=== PATIENT | female | born 1990 | race Caucasian/White ===

== ENCOUNTER 2019-11-14 09:23 | Inpatient (IN) | payer MEDICAID ==
[2019-11-14] MEDS ORDERED: Nalbuphine 10 MG/ML Syringe IVPUSH PRN (10:59)
[2019-11-14] MEDS ORDERED: Sodium Chloride 0.9% 10 ML Syringe FLUSH PRN (10:59)
[2019-11-14] MEDS ORDERED: Oxytocin/Lactated Ringers 10 UNIT/1,000 ML BAG IV SCH ×2 (11:00)
[2019-11-14] MEDS: Lactated Ringers 1,000 ML IV SCH ×4 (11:45→17:47)
[2019-11-14] MEDS ORDERED: ePHEDrine 50 MG/ML SDV IVPUSH PRN (11:47)
[2019-11-14] MEDS ORDERED: Ondansetron 4 MG/2 ML SDV IVPUSH PRN (11:47)
[2019-11-14] MEDS ORDERED: fentaNYL 100 MCG/2 ML SDV EPIDUR PRN (11:47)
--- NOTE | 2019-11-14 11:50 | PCM.PREANE ---
Preanesthetic Assessment - Procedure Proposed Procedure: LINDA - Anesthesia/Transfusion/Family Hx Anesthesia History: Prior Anesthesia Without Reaction Family History of Anesthesia Reaction: No Transfusion History: No Prior Transfusion(s) Intubation History: Unknown - Review of Systems General: No Symptoms Pulmonary: No Symptoms Cardiovascular: No Symptoms Gastrointestinal: No Symptoms (GERD with ), Constipation Neurological: Headache, Tingling (bilateral feet with ) Other: Reports: None - Physical Assessment NPO Status Date: 11/14/19 NPO Status Time: 11:30 Vital Signs: Last Vital Signs Temp 36.4 C 11/14/19 10:03 Pulse 99 11/14/19 10:03 Resp 16 11/14/19 10:03 BP 116/71 11/14/19 10:03 Pulse Ox 100 11/14/19 10:03 Height: 1.45 m Weight: 82.781 kg ASA Class: 2 Mental Status: Alert & Oriented x3 Airway Class: Mallampati = 2 Dentition: Reports: Normal Dentition, Caries Thyro-Mental Finger Breadths: 3 Mouth Opening Finger Breadths: 3 ROM/Head Extension: Full Lungs: Clear to Auscultation, Normal Respiratory Effort Cardiovascular: Regular Rate, Regular Rhythm, No Murmurs - Lab Values: Laboratory Last Values WBC 6.92 K/mm3 (3.98-10.04) 11/14/19 11:15 RBC 3.91 M/mm3 (3.98-5.22) L 11/14/19 11:15 Hgb 11.6 gm/dl (11.2-15.7) 11/14/19 11:15 Hct 34.9 % (34.1-44.9) 11/14/19 11:15 MCV 89.3 fl (79.4-94.8) 11/14/19 11:15 MCH 29.7 pg (25.6-32.2) 11/14/19 11:15 MCHC 33.2 g/dl (32.2-35.5) 11/14/19 11:15 RDW Std Deviation 48.1 fL (36.4-46.3) H 11/14/19 11:15 Plt Count 212 K/mm3 (182-369) 11/14/19 11:15 MPV 10.3 fl (9.4-12.3) 11/14/19 11:15 Neut % (Auto) 59.5 % (34.0-71.1) 11/14/19 11:15 Lymph % (Auto) 26.7 % (19.3-51.7) 11/14/19 11:15 [place] % (Auto) 11.1 % (4.7-12.5) 11/14/19 11:15 Eos % (Auto) 1.7 (0.7-5.8) 11/14/19 11:15 Baso % (Auto) 0.4 % (0.1-1.2) 11/14/19 11:15 Neut # (Auto) 4.11 K/mm3 (1.56-6.13) 11/14/19 11:15 Lymph # (Auto) 1.85 K/mm3 (1.18-3.74) 11/14/19 11:15 [place] # (Auto) 0.77 K/mm3 (0.24-0.36) H 11/14/19 11:15 Eos # (Auto) 0.12 K/mm3 (0.04-0.36) 11/14/19 11:15 Baso # (Auto) 0.03 K/mm3 (0.01-0.08) 11/14/19 11:15 Membrane Rupture Positive H 11/14/19 10:05 Above labs reviewed and noted and within acceptable ranges to proceed with epidural if desired. - Allergies Allergies/Adverse Reactions: Allergies Allergy/AdvReac Type Severity Reaction Status Date / Time Sulfa (Sulfonamide Allergy Hives Verified 11/14/19 09:52 Antibiotics) - Anesthesia Plan Pre-Op Medication Ordered: None - Acknowledgements Anesthesia Type Planned: Spinal, Epidural Pt an Appropriate Candidate for the Planned Anesthesia: Yes Alternatives and Risks of Anesthesia Discussed w Pt/Guardian: Yes Pt/Guardian Understands and Agrees with Anesthesia Plan: Yes PreAnesthesia Questionnaire - CURRENT (IN HOUSE) MEDS Current Meds: Current Medications Lactated Ringer's (Ringers, Lactated) 1,000 mls @ 100 mls/hr IV ASDIRECTED [facility] Last Admin: 11/14/19 11:46 Dose: 100 mls/hr Oxytocin/Lactated Ringer's (Pitocin In Lr 10 Units/1,000 Ml) 10 unit in 1,000 mls @ 12 mls/hr IV TITRATE [facility]; Protocol Last Admin: 11/14/19 11:46 Dose: 2 munits/min, 12 mls/hr Oxytocin/Lactated Ringer's (Pitocin In Lr 10 Units/1,000 Ml) 10 unit in 1,000 mls @ 500 mls/hr IV .CONTINUOUS IN[facility] Nalbuphine HCl (Nubain) 10 mg IVPUSH Q2H PRN PRN Reason: Pain Sodium Chloride (Saline Flush) 10 ml FLUSH ASDIRECTED PRN PRN Reason: Keep Vein Open
[2019-11-14] MEDS ORDERED: Phenylephrine 1 MG in Sodium Chloride 0.9% 10 ML IV PRN (12:00)
[2019-11-14] MEDS: Bupivacaine/fentaNYL/NS 100 ML Bag EPIDUR SCH (15:08)
--- NOTE | 2019-11-14 17:01 | PCM.LDHP ---
L&D History of Present Illness - General Date of Service: 11/14/19 Admit Problem/Dx: Patient Status Order with Admit Dx/Problem 11/14/19 10:03 Patient Status [ADT] Routine 11/14/19 11:04 Patient Status [ADT] Routine Admission Diagnosis/Problem Admission Diagnosis/Problem Source of Information: Patient History Limitations: Reports: No Limitations - History of Present Illness Introduction:: 29 year old at 39w1d here with SROM clear fluid. PNC with myself without significant complications. Prior and desires TOLAC. 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 (See Below) Other OB/BYN History: oopherectomy age 13 - Infectious Disease History Infectious Disease History: Reports: None Social & Family History - Family History Family Medical History: Noncontributory - Tobacco Use Smoking Status *Q: Never Smoker Second Hand Smoke Exposure: No - Caffeine Use Caffeine Use: Reports: None, Coffee Caffeine Use Comment: twice weekly - Recreational Drug Use Recreational Drug Use: No H&P Review of Systems - Review of Systems: Review Of Systems: See Below General: Reports: No Symptoms HEENT: Reports: No Symptoms Pulmonary: Reports: No Symptoms Cardiovascular: Reports: No Symptoms Gastrointestinal: Reports: No Symptoms Genitourinary: Reports: No Symptoms Musculoskeletal: Reports: No Symptoms Skin: Reports: No Symptoms Psychiatric: Reports: No Symptoms Neurological: Reports: No Symptoms Hematologic/Lymphatic: Reports: No Symptoms Immunologic: Reports: No Symptoms L&D Exam - Exam Exam: See Below - Vital Signs Vital Signs: Last Vital Signs Temp 36.4 C 11/14/19 10:03 Pulse 99 11/14/19 10:03 Resp 16 11/14/19 10:03 BP 116/71 11/14/19 10:03 Pulse Ox 100 11/14/19 10:03 Weight: 82.781 kg - OB Specific Contraction Intensity: Moderate to Strong Movement: Active Heart Tones: Present Heart Rate (FHR) Variability: Moderate (6-25 bmp) Presentation: Vertex - Leroy Score Leroy Score Cervix Position: Anterior Leroy Score Consistency: Soft Leroy Score Effacement: >80% Leroy Score Dilation: 3-4 cm Leroy Score 's Station: -2 Leroy Score Total: 10 - Exam General: Alert, Oriented HEENT: PERRLA, Conjunctiva Clear, EACs Clear, EOMI, Hearing Intact, Mucosa Moist & [place], Nares Patent, Normal Nasal Septum, Posterior Pharynx Clear, TMs Clear Neck: Supple, Trachea Midline Lungs: Clear to Auscultation, Normal Respiratory Effort Cardiovascular: Regular Rate, Regular Rhythm GI/Abdominal Exam: Normal Bowel Sounds, Soft, Non-Tender, No Organomegaly, No Distention, No Abnormal Bruit, No Mass, Pelvis Stable Extremities: Normal Inspection, Normal Range of Motion, Non-Tender, No Pedal Edema, Normal Capillary Refill Skin: Warm, Dry, Intact Neurological: Cranial Nerves Intact, Reflexes Equal Bilateral Psychiatric: Alert, Normal Affect, Normal Mood - Patient Data Lab Results Last 24 hrs: Laboratory Results - last 24 hr 11/14/19 11/14/19 11/14/19 Range/Units 10:05 11:15 11:15 WBC 6.92 (3.98-10.04) K/mm3 RBC 3.91 L (3.98-5.22) M/mm3 Hgb 11.6 (11.2-15.7) gm/dl Hct 34.9 (34.1-44.9) % MCV 89.3 (79.4-94.8) fl MCH 29.7 (25.6-32.2) pg MCHC 33.2 (32.2-35.5) g/dl RDW Std Deviation 48.1 H (36.4-46.3) fL Plt Count 212 (182-369) K/mm3 MPV 10.3 (9.4-12.3) fl Neut % (Auto) 59.5 (34.0-71.1) % Lymph % (Auto) 26.7 (19.3-51.7) % [place] % (Auto) 11.1 (4.7-12.5) % Eos % (Auto) 1.7 (0.7-5.8) Baso % (Auto) 0.4 (0.1-1.2) % Neut # (Auto) 4.11 (1.56-6.13) K/mm3 Lymph # (Auto) 1.85 (1.18-3.74) K/mm3 [place] # (Auto) 0.77 H (0.24-0.36) K/mm3 Eos # (Auto) 0.12 (0.04-0.36) K/mm3 Baso # (Auto) 0.03 (0.01-0.08) K/mm3 Membrane Rupture Positive H Blood Type O POSITIVE Gel Antibody Screen Negative Result Diagrams: 11/14/19 11:15 Problem List Initiated/Reviewed/Updated: Yes Orders Last 24hrs: Active Orders 24 hr Category Date Time Status Patient Status [ADT] Routine ADT 11/14/19 11:04 Active Activity as Tolerated [RC] PFP Care 11/14/19 11:00 Active Communication Order [RC] ASDIRECTED Care 11/14/19 11:00 Active Heart Tones [RC] ASDIRECTED Care 11/14/19 11:01 Active Notify Provider [RC] ASDIRECTED Care 11/14/19 11:47 Active Notify Provider [RC] PFP Care 11/14/19 11:00 Active Notify Provider [RC] PRN Care 11/14/19 11:00 Active Oxygen Therapy [RC] ASDIRECTED Care 11/14/19 11:47 Active Peripheral IV Care [RC] . DIRECTED Care 11/14/19 11:01 Active Pulse Oximetry [RC] ASDIRECTED Care 11/14/19 11:47 Active Vital Signs [RC] PER UNIT ROUTINE Care 11/14/19 10:03 Active Vital Signs [RC] PER UNIT ROUTINE Care 11/14/19 11:00 Active Regular Diet [DIET] Diet 11/14/19 Lunch Active Regular Diet [DIET] Diet 11/14/19 Lunch Active RAPID PLASMA REAGIN,RPR [CHEM] Routine Lab 11/14/19 11:15 Received Bupivacaine/fentaNYL/NS [fentaNYL/Bupivacaine/NS 2 MCG- Med 11/14/19 12:00 Active 0.125% 100 ML] 100 ml EPIDUR ASDIRECTED Lactated Ringers [Ringers, Lactated] 1,000 ml Med 11/14/19 11:00 Active IV ASDIRECTED Nalbuphine [Nubain] Med 11/14/19 10:59 Active 10 mg IVPUSH Q2H PRN Ondansetron [Zofran] Med 11/14/19 11:47 Active 4 mg IVPUSH ONETIME PRN Oxytocin/Lactated Ringers [Pitocin in LR 10 Units/1,000 Med 11/14/19 11:00 Active ML] 10 unit in 1,000 ml IV .CONTINUOUS Oxytocin/Lactated Ringers [Pitocin in LR 10 Units/1,000 Med 11/14/19 11:00 Active ML] 10 unit in 1,000 ml IV TITRATE Phenylephrine [Simeon-Synephrine] 1 mg Med 11/14/19 12:00 Active Sodium Chloride 0.9% [Normal Saline] 10 ml IV TITRATE Sodium Chloride 0.9% [Saline Flush] Med 11/14/19 10:59 Active 10 ml FLUSH ASDIRECTED PRN ePHEDrine [ePHEDrine sulfate] Med 11/14/19 11:47 Active 5 mg IVPUSH ASDIRECTED PRN fentaNYL [Sublimaze] Med 11/14/19 11:47 Active 100 mcg EPIDUR Q3H PRN Electronic Heart Tones Ext w TOCO [WOMSER] Oth 11/14/19 11:00 Ordered Routine Electronic Heart Tones Internal [WOMSER] Per Unit Ot 11/14/19 11:00 Ordered Routine Peripheral IV Insertion Adult [OM.PC] Routine Oth 11/14/19 11:00 Ordered Resuscitation Status Routine Resus Stat 11/14/19 10:03 Ordered Medication Orders Ephedrine Sulfate (Ephedrine Sulfate) 5 mg IVPUSH ASDIRECTED PRN PRN Reason: Hypotension Fentanyl (Sublimaze) 100 mcg EPIDUR Q3H PRN PRN Reason: Pain Last Admin: 11/14/19 15:07 Dose: 100 mcg Fentanyl/Bupivacaine HCl (Fentanyl/Bupivacaine/Ns 2 Mcg-0.125% 100 Ml) 100 ml EPIDUR ASDIRECTED [facility] Last Admin: 11/14/19 15:08 Dose: 100 ml Lactated Ringer's (Ringers, Lactated) 1,000 mls @ 100 mls/hr IV ASDIRECTED [facility] Last Admin: 11/14/19 15:35 Dose: 200 mls/hr Infusion: 11/14/19 15:35 Dose: 0 mls/hr Admin: 11/14/19 11:46 Dose: 100 mls/hr Infusion: 11/14/19 11:46 Dose: 100 mls/hr Admin: 05/13/20 11:45 Dose: 100 mls/hr Oxytocin/Lactated Ringer's (Pitocin In Lr 10 Units/1,000 Ml) 10 unit in 1,000 mls @ 12 mls/hr IV TITRATE INNA; Protocol Last Titration: 11/14/19 16:46 Dose: 6 munits/min, 36 mls/hr Titration: 11/14/19 12:09 Dose: 4 munits/min, 24 mls/hr Admin: 11/14/19 11:46 Dose: 2 munits/min, 12 mls/hr Oxytocin/Lactated Ringer's (Pitocin In Lr 10 Units/1,000 Ml) 10 unit in 1,000 mls @ 500 mls/hr IV .CONTINUOUS INNA Phenylephrine HCl 1 mg/ Sodium (Chloride) 10.1 mls @ 1 mls/sec IV TITRATE PRN; Protocol PRN Reason: see comment Nalbuphine HCl (Nubain) 10 mg IVPUSH Q2H PRN PRN Reason: Pain Ondansetron HCl (Zofran) 4 mg IVPUSH ONETIME PRN PRN Reason: Nausea/Vomiting Sodium Chloride (Saline Flush) 10 ml FLUSH ASDIRECTED PRN PRN Reason: Keep Vein Open Assessment/Plan Comment:: 29 year old with prior section and desire for EVELYN. SROM clear fluid. 1 cm. Will monitor closely. RBA discussed again. Understands risks. Records reviewed from before. Didn't progress beyond about 4 cm.
--- NOTE | 2019-11-14 17:11 | PCM.PNLD ---
Labor Progress Note - VS & Meds Vital Signs: Last Vital Signs Temp 36.4 C 11/14/19 10:03 Pulse 99 11/14/19 10:03 Resp 16 11/14/19 10:03 BP 116/71 11/14/19 10:03 Pulse Ox 100 11/14/19 10:03 Active Medications: Current Medications Ephedrine Sulfate (Ephedrine Sulfate) 5 mg IVPUSH ASDIRECTED PRN PRN Reason: Hypotension Fentanyl (Sublimaze) 100 mcg EPIDUR Q3H PRN PRN Reason: Pain Last Admin: 11/14/19 15:07 Dose: 100 mcg Fentanyl/Bupivacaine HCl (Fentanyl/Bupivacaine/Ns 2 Mcg-0.125% 100 Ml) 100 ml EPIDUR ASDIRECTED [facility] Last Admin: 11/14/19 15:08 Dose: 100 ml Lactated Ringer's (Ringers, Lactated) 1,000 mls @ 100 mls/hr IV ASDIRECTED INNA Last Admin: 11/14/19 15:35 Dose: 200 mls/hr Oxytocin/Lactated Ringer's (Pitocin In Lr 10 Units/1,000 Ml) 10 unit in 1,000 mls @ 12 mls/hr IV TITRATE INNA; Protocol Last Titration: 11/14/19 16:46 Dose: 6 munits/min, 36 mls/hr Oxytocin/Lactated Ringer's (Pitocin In Lr 10 Units/1,000 Ml) 10 unit in 1,000 mls @ 500 mls/hr IV .CONTINUOUS INNA Phenylephrine HCl 1 mg/ Sodium (Chloride) 10.1 mls @ 1 mls/sec IV TITRATE PRN; Protocol PRN Reason: see comment Nalbuphine HCl (Nubain) 10 mg IVPUSH Q2H PRN PRN Reason: Pain Ondansetron HCl (Zofran) 4 mg IVPUSH ONETIME PRN PRN Reason: Nausea/Vomiting Sodium Chloride (Saline Flush) 10 ml FLUSH ASDIRECTED PRN PRN Reason: Keep Vein Open - Uterine Contractions Uterine Monitoring Mode: External [place] Contraction Intensity: Moderate to Strong Uterine Resting Tone: Soft - Monitoring Heart Rate (FHR) Variability: Moderate (6-25 bmp) Accelerations: Present, 15x15 Decelerations: None Strip Review: Category I - Vaginal Exam Dilation (cm): 4 Effacement (Percent): 80 Station: -3 - Labor Progress (Free Text) Labor Progress: Slow progress. Comfortable with epidural. Pitocin at 6 mu/min. Discussed typical labor progress once active. Was 1 cm this am now 4. Continue to monitor closely. Will sign out to Dr. Collazo this evening.
--- NOTE | 2019-11-14 18:50 | PCM.PNLD ---
Labor Progress Note - VS & Meds Vital Signs: Last Vital Signs Temp 36.4 C 11/14/19 10:03 Pulse 99 11/14/19 10:03 Resp 16 11/14/19 10:03 BP 116/71 11/14/19 10:03 Pulse Ox 100 11/14/19 10:03 Active Medications: Current Medications Ephedrine Sulfate (Ephedrine Sulfate) 5 mg IVPUSH ASDIRECTED PRN PRN Reason: Hypotension Fentanyl (Sublimaze) 100 mcg EPIDUR Q3H PRN PRN Reason: Pain Last Admin: 11/14/19 15:07 Dose: 100 mcg Fentanyl/Bupivacaine HCl (Fentanyl/Bupivacaine/Ns 2 Mcg-0.125% 100 Ml) 100 ml EPIDUR ASDIRECTED [facility] Last Admin: 11/14/19 15:08 Dose: 100 ml Lactated Ringer's (Ringers, Lactated) 1,000 mls @ 100 mls/hr IV ASDIRECTED IN[facility] Last Admin: 11/14/19 17:47 Dose: 125 mls/hr Oxytocin/Lactated Ringer's (Pitocin In Lr 10 Units/1,000 Ml) 10 unit in 1,000 mls @ 12 mls/hr IV TITRATE INNA; Protocol Last Titration: 11/14/19 18:20 Dose: 12 munits/min, 72 mls/hr Oxytocin/Lactated Ringer's (Pitocin In Lr 10 Units/1,000 Ml) 10 unit in 1,000 mls @ 500 mls/hr IV .CONTINUOUS INNA Phenylephrine HCl 1 mg/ Sodium (Chloride) 10.1 mls @ 1 mls/sec IV TITRATE PRN; Protocol PRN Reason: see comment Nalbuphine HCl (Nubain) 10 mg IVPUSH Q2H PRN PRN Reason: Pain Ondansetron HCl (Zofran) 4 mg IVPUSH ONETIME PRN PRN Reason: Nausea/Vomiting Sodium Chloride (Saline Flush) 10 ml FLUSH ASDIRECTED PRN PRN Reason: Keep Vein Open - Uterine Contractions Uterine Monitoring Mode: External [place] Contraction Intensity: Moderate to Strong Uterine Resting Tone: Soft - Monitoring Monitor Mode: External Ultrasound Heart Rate (FHR) Baseline: 135 Heart Rate (FHR) Variability: Moderate (6-25 bmp) Accelerations: Present, 15x15 Decelerations: None Strip Review: Category I - Vaginal Exam Dilation (cm): 3-4 Effacement (Percent): 75 Station: -2 Cervical Position: Midposition - Labor Progress (Free Text) Labor Progress: Assumed care for this patient. Patient is a 29 y/o at 39 6/7 wks who presented with PROM. ROM occurred at about 0600 this AM. Was 1 cm when admitted today around 1030. Started on pitocin for augmentation which is currently at 12. SVE just now shows patient to be 3-4 cm dilated, 75% effaced, adn -2 station. IUPC placed to allow more accurate augmentation. Reviewed with patient 1-2% risk of uterine rupture which could result in neurological injury to baby or even demise. Also reviewed increased risk of bleeding, infection, injury to additional structures in setting of uterine rupture. Patient voiced understanding of these risks.
--- NOTE | 2019-11-14 21:07 | PCM.SN.2 ---
- Free Text/Narrative Note: 2014 Called by RN due to recurrent variables. These were into the 80-90's and about 30 seconds wide. Pitocin at 13. In to assess patient. Pitocin down to 8 and patient put in hands/knees with resolution of deep variables. After about 20 minutes taken out of hands/knees due to maternal fatigue. Put in far lateral positioning. Will continue to monitor closely. Patient and aware of findings and implications Reyna Collazo MD
[2019-11-15] MEDS ORDERED: Bupivacaine 0.25% 10 ML SDV ONE
[2019-11-15] MEDS: Bupivacaine/fentaNYL/NS 100 ML Bag EPIDUR SCH (00:46)
[2019-11-15] MEDS: Lactated Ringers 1,000 ML IV SCH ×2 (02:06→05:41)
[2019-11-15] MEDS ORDERED: Misoprostol 200 MCG Tab ONE (04:59)
[2019-11-15] MEDS ORDERED: Methylergonovine 0.2 MG/1 ML Amp ONE (05:24)
[2019-11-15] MEDS ORDERED: Misoprostol 200 MCG Tab PO STA (05:34)
[2019-11-15] MEDS ORDERED: Methylergonovine 0.2 MG/1 ML Amp IM STA (05:34)
--- NOTE | 2019-11-15 05:36 | PCM.DEL ---
L & D Note - General Info Date of Service: 11/15/19 - Delivery Note Labor: Augmented by Oxytocin Delivery Outcome: Livebirth Delivery Method: Spontaneous Vaginal Delivery-Single Delivery Mode: Spontaneous Presentation: Right Occiput Anterior (DENNY) Nuchal Cord: None Anesthesia Type: Epidural Amniotic Fluid Description: Clear Episiotomy Type: None Laceration: Sulcus Suture type: Vicryl Suture size: 2-0 Placenta: Intact, Spontaneous Cord: 3 Vessels Estimated Blood Loss: 500 Resuscitation Needed: Yes [place]: Bulb Syringe, Stimulated, Warmed, [place] Used, Warmer Used Delivery Comments (Free Text/Narrative):: Patient found to be complete and began pushing. With maternal pushing effort head delivered from an DENNY presentation. With gentle downward traction the shoulders and body delivered. Infant placed on maternal abdomen. Cord clamped and cut. There is immediately relatively brisk bleeding noted. Placenta delivered. Patient given 600 mcg of buccal Cytotec. Inspection showed bleeding also from 2 bilateral sulcus tears. These were repaired with interrupted sutures of 2-0 Vicryl. Still somewhat oozing from these sites. Patient given tranexamic acid. Still with slightly poor tone and so dose of Methergine given and bladder emptied via straight catheterization. With the aforementioned interventions bleeding did cathy and patient did feel improved. - General Info Date of Service: 11/15/19 - Patient Data Vitals - Most Recent: Last Vital Signs Temp 36.4 C 11/14/19 10:03 Pulse 99 11/14/19 10:03 Resp 16 11/14/19 10:03 BP 116/71 11/14/19 10:03 Pulse Ox 100 11/14/19 10:03 Weight - Most Recent: 82.781 kg I&O - Last 24 Hours: Intake & Output 11/14/19 11/14/19 11/15/19 14:59 22:59 06:59 Intake Total 120 Output Total 1300 Balance 120 -1300 Lab Results Last 24 Hours: Laboratory Results - last 24 hr 11/14/19 11/14/19 11/14/19 Range/Units 10:05 11:15 11:15 WBC 6.92 (3.98-10.04) K/mm3 RBC 3.91 L (3.98-5.22) M/mm3 Hgb 11.6 (11.2-15.7) gm/dl Hct 34.9 (34.1-44.9) % MCV 89.3 (79.4-94.8) fl MCH 29.7 (25.6-32.2) pg MCHC 33.2 (32.2-35.5) g/dl RDW Std Deviation 48.1 H (36.4-46.3) fL Plt Count 212 (182-369) K/mm3 MPV 10.3 (9.4-12.3) fl Neut % (Auto) 59.5 (34.0-71.1) % Lymph % (Auto) 26.7 (19.3-51.7) % [place] % (Auto) 11.1 (4.7-12.5) % Eos % (Auto) 1.7 (0.7-5.8) Baso % (Auto) 0.4 (0.1-1.2) % Neut # (Auto) 4.11 (1.56-6.13) K/mm3 Lymph # (Auto) 1.85 (1.18-3.74) K/mm3 [place] # (Auto) 0.77 H (0.24-0.36) K/mm3 Eos # (Auto) 0.12 (0.04-0.36) K/mm3 Baso # (Auto) 0.03 (0.01-0.08) K/mm3 Membrane Rupture Positive H RPR Non-reactive (NONREACTIVE) Blood Type Gel Antibody Screen 11/14/19 Range/Units 11:15 WBC (3.98-10.04) K/mm3 RBC (3.98-5.22) M/mm3 Hgb (11.2-15.7) gm/dl Hct (34.1-44.9) % MCV (79.4-94.8) fl MCH (25.6-32.2) pg MCHC (32.2-35.5) g/dl RDW Std Deviation (36.4-46.3) fL Plt Count (182-369) K/mm3 MPV (9.4-12.3) fl Neut % (Auto) (34.0-71.1) % Lymph % (Auto) (19.3-51.7) % [place] % (Auto) (4.7-12.5) % Eos % (Auto) (0.7-5.8) Baso % (Auto) (0.1-1.2) % Neut # (Auto) (1.56-6.13) K/mm3 Lymph # (Auto) (1.18-3.74) K/mm3 [place] # (Auto) (0.24-0.36) K/mm3 Eos # (Auto) (0.04-0.36) K/mm3 Baso # (Auto) (0.01-0.08) K/mm3 Membrane Rupture RPR (NONREACTIVE) Blood Type O POSITIVE Gel Antibody Screen Negative Med Orders - Current: Current Medications Ephedrine Sulfate (Ephedrine Sulfate) 5 mg IVPUSH ASDIRECTED PRN PRN Reason: Hypotension Fentanyl (Sublimaze) 100 mcg EPIDUR Q3H PRN PRN Reason: Pain Last Admin: 11/14/19 15:07 Dose: 100 mcg Fentanyl/Bupivacaine HCl (Fentanyl/Bupivacaine/Ns 2 Mcg-0.125% 100 Ml) 100 ml EPIDUR ASDIRECTED [facility] Last Admin: 11/15/19 00:46 Dose: 100 ml Lactated Ringer's (Ringers, Lactated) 1,000 mls @ 100 mls/hr IV ASDIRECTED [facility] Last Admin: 11/15/19 02:06 Dose: 125 mls/hr Oxytocin/Lactated Ringer's (Pitocin In Lr 10 Units/1,000 Ml) 10 unit in 1,000 mls @ 12 mls/hr IV TITRATE INNA; Protocol Last Titration: 11/14/19 21:44 Dose: 6 munits/min, 36 mls/hr Oxytocin/Lactated Ringer's (Pitocin In Lr 10 Units/1,000 Ml) 10 unit in 1,000 mls @ 500 mls/hr IV .CONTINUOUS INNA Phenylephrine HCl 1 mg/ Sodium (Chloride) 10.1 mls @ 1 mls/sec IV TITRATE PRN; Protocol PRN Reason: see comment Methylergonovine Maleate (Methergine) 0.2 mg IM NOW STA Stop: 11/15/19 05:35 Misoprostol (Cytotec) 600 mcg PO NOW STA Stop: 11/15/19 05:35 Nalbuphine HCl (Nubain) 10 mg IVPUSH Q2H PRN PRN Reason: Pain Ondansetron HCl (Zofran) 4 mg IVPUSH ONETIME PRN PRN Reason: Nausea/Vomiting Sodium Chloride (Saline Flush) 10 ml FLUSH ASDIRECTED PRN PRN Reason: Keep Vein Open Tranexamic Acid (Cyklokapron) 1,000 mg IVPUSH ONETIME ONE Stop: 11/15/19 05:35 Discontinued Medications Methylergonovine Maleate (Methergine) Confirm Administered Dose 0.2 mg .ROUTE .STK-MED ONE Stop: 11/15/19 05:25 Misoprostol (Cytotec) Confirm Administered Dose 200 mcg .ROUTE .STK-MED ONE Stop: 11/15/19 05:00 Tranexamic Acid (Cyklokapron) Confirm Administered Dose 1,000 mg .ROUTE .STK- MED ONE Stop: 11/15/19 05:12 - Problem List & Annotations (1) 39 weeks gestation of SNOMED Code(s): 48743021 Code(s): Z3A.39 - 39 WEEKS GESTATION OF Status: Acute Current Visit: Yes (2) PROM (premature rupture of membranes) SNOMED Code(s): 81283749 Code(s): O42.90 - JENA ROM, 7TH0 BETW RUPT & ONST LABR, UNSP WEEKS OF GEST Status: Acute Current Visit: Yes Qualifiers: PROM onset of labor timing: onset of labor within 24 hours of rupture PROM gestational age: full term Qualified Code(s): O42.02 - Full-term premature rupture of membranes, onset of labor within 24 hours of rupture (3) History of delivery SNOMED Code(s): 753745469 Code(s): Z98.891 - HISTORY OF UTERINE SCAR FROM PREVIOUS SURGERY Status: Acute Current Visit: Yes (4) Vaginal after , delivered, current hospitalization SNOMED Code(s): 262872898 Code(s): O34.219 - MATERNAL CARE FOR UNSP TYPE SCAR FROM PREVIOUS DEL Status: Acute Current Visit: Yes (5) hemorrhage SNOMED Code(s): 35605543 Code(s): O72.1 - OTHER IMMEDIATE HEMORRHAGE Status: Acute Current Visit: Yes - Problem List Review Problem List Initiated/Reviewed/Updated: Yes - My Orders Last 24 Hours: My Active Orders 11/15/19 05:34 Methylergonovine [Methergine] 0.2 mg IM NOW STA Tranexamic Acid [Cyklokapron] 1,000 mg IVPUSH ONETIME ONE miSOPROStoL [Cytotec] 600 mcg PO NOW STA - Assessment Assessment:: PPD#0 - Plan Plan:: Routine cares Monitor bleeding closely Breast feeding Discharge home in 1-2 days
[2019-11-15] MEDS ORDERED: Acetaminophen 325 MG Tab PO PRN (06:24)
[2019-11-15] MEDS ORDERED: Docusate Sodium 100 MG Cap PO PRN (06:24)
[2019-11-15] MEDS ORDERED: ceFAZolin 1 GM in Premix Bag 1 BAG IV ONE (06:35)
[2019-11-15] MEDS: Ibuprofen 600 MG Tab PO PRN ×2 (09:37→18:14)
[2019-11-15] MEDS: Benzocaine/Menthol 20%-0.5% Spray 56 GM Canister TOP PRN (09:38)
[2019-11-15] MEDS: Witch Hazel Medicated Pads 40/Jar TOP PRN (09:39)
--- NOTE | 2019-11-16 07:15 | PCM.PNPP ---
- General Info Date of Service: 11/16/19 Functional Status: Reports: Pain Controlled, Tolerating Diet, Ambulating, Urinating - Review of Systems General: Reports: No Symptoms Pulmonary: Reports: No Symptoms Cardiovascular: Reports: No Symptoms Gastrointestinal: Reports: No Symptoms Genitourinary: Reports: No Symptoms Musculoskeletal: Reports: No Symptoms Neurological: Reports: No Symptoms - Patient Data Vital Signs - Most Recent: Last Vital Signs Temp 36.7 C 11/15/19 21:09 Pulse 80 11/16/19 04:17 Resp 16 11/16/19 04:17 BP 92/53 L 11/16/19 04:17 Pulse Ox 96 11/16/19 04:17 Weight - Most Recent: 82.781 kg I&O - Last 24 Hours: Intake & Output 11/15/19 11/16/19 11/16/19 22:59 06:59 14:59 Intake Total 240 Balance 240 Med Orders - Current: Current Medications Acetaminophen (Tylenol) 650 mg PO Q4H PRN PRN Reason: mild pain or fever Benzocaine/Menthol (Dermoplast Pain Relief Lookout) 0 gm TOP ASDIRECTED PRN PRN Reason: Perineal Comfort Measure Last Admin: 11/15/19 09:38 Dose: 1 spray Docusate Sodium (Colace) 100 mg PO BID PRN PRN Reason: Constipation Ibuprofen (Motrin) 600 mg PO Q6H PRN PRN Reason: Mild pain or fever Last Admin: 11/15/19 18:14 Dose: 600 mg Witch Odalys (Tucks) 1 pad TOP ASDIRECTED PRN PRN Reason: Perineal Comfort Measure Last Admin: 11/15/19 09:39 Dose: 1 pad Discontinued Medications Bupivacaine HCl (Sensorcaine-Mpf 0.25%) 10 ml .ROUTE .STK-MED ONE Stop: 11/15/19 00:01 Ephedrine Sulfate (Ephedrine Sulfate) 5 mg IVPUSH ASDIRECTED PRN PRN Reason: Hypotension Fentanyl (Sublimaze) 100 mcg EPIDUR Q3H PRN PRN Reason: Pain Last Admin: 11/14/19 15:07 Dose: 100 mcg Fentanyl/Bupivacaine HCl (Fentanyl/Bupivacaine/Ns 2 Mcg-0.125% 100 Ml) 100 ml EPIDUR ASDIRECTED INNA Last Admin: 11/15/19 00:46 Dose: 100 ml Lactated Ringer's (Ringers, Lactated) 1,000 mls @ 100 mls/hr IV ASDIRECTED INNA Last Admin: 11/15/19 05:41 Dose: 125 mls/hr Oxytocin/Lactated Ringer's (Pitocin In Lr 10 Units/1,000 Ml) 10 unit in 1,000 mls @ 12 mls/hr IV TITRATE INNA; Protocol Last Titration: 11/14/19 21:44 Dose: 6 munits/min, 36 mls/hr Oxytocin/Lactated Ringer's (Pitocin In Lr 10 Units/1,000 Ml) 10 unit in 1,000 mls @ 500 mls/hr IV .CONTINUOUS INNA Last Admin: 11/15/19 05:42 Dose: 500 mls/hr Phenylephrine HCl 1 mg/ Sodium (Chloride) 10.1 mls @ 1 mls/sec IV TITRATE PRN; Protocol PRN Reason: see comment Cefazolin Sodium/Dextrose 1 gm (/ Premix) 50 mls @ 100 mls/hr IV ONETIME ONE Stop: 11/15/19 07:04 Last Admin: 11/15/19 06:41 Dose: 100 mls/hr Cefazolin Sodium/Dextrose (Ancef) Confirm Administered Dose 50 mls @ as directed .ROUTE .STK-MED ONE Stop: 11/15/19 06:39 Last Admin: 11/15/19 07:11 Dose: Not Given Methylergonovine Maleate (Methergine) Confirm Administered Dose 0.2 mg .ROUTE .STK-MED ONE Stop: 11/15/19 05:25 Last Admin: 11/15/19 05:27 Dose: 0.2 mg Methylergonovine Maleate (Methergine) 0.2 mg IM NOW STA Stop: 11/15/19 05:35 Last Admin: 11/15/19 05:39 Dose: Not Given Misoprostol (Cytotec) Confirm Administered Dose 200 mcg .ROUTE .STK-MED ONE Stop: 11/15/19 05:00 Last Admin: 11/15/19 05:37 Dose: Not Given Misoprostol (Cytotec) 600 mcg PO NOW STA Stop: 11/15/19 05:35 Last Admin: 11/15/19 05:00 Dose: 600 mcg Nalbuphine HCl (Nubain) 10 mg IVPUSH Q2H PRN PRN Reason: Pain Ondansetron HCl (Zofran) 4 mg IVPUSH ONETIME PRN PRN Reason: Nausea/Vomiting Sodium Chloride (Saline Flush) 10 ml FLUSH ASDIRECTED PRN PRN Reason: Keep Vein Open Tranexamic Acid (Cyklokapron) Confirm Administered Dose 1,000 mg .ROUTE .STK- MED ONE Stop: 11/15/19 05:12 Last Admin: 11/15/19 05:16 Dose: 1,000 mg Tranexamic Acid (Cyklokapron) 1,000 mg IVPUSH ONETIME ONE Stop: 11/15/19 05:35 Last Admin: 11/15/19 05:39 Dose: Not Given - Interaction Infant Disposition, : Swisher in Room with Family Infant Interaction: Holding Infant Feeding: Attempted ; Nursed Fair/Poor Support Person: - Recovery Exam Fundal Tone: Firm Fundal Level: 1 Fingerbreadths Below Umbilicus Fundal Placement: Midline Lochia Amount: Small Lochia Color: Rubra/Red Bladder Status: Voiding Urinary Elimination: Voided - Exam General: Alert, Oriented, Cooperative GI/Abdominal Exam: Soft, Non-Tender Extremities: Normal Inspection Skin: Warm, Dry, Intact - Problem List & Annotations (1) 39 weeks gestation of SNOMED Code(s): 08177000 Code(s): Z3A.39 - 39 WEEKS GESTATION OF Status: Acute Current Visit: Yes (2) PROM (premature rupture of membranes) SNOMED Code(s): 23784416 Code(s): O42.90 - JENA ROM, 7TH0 BETW RUPT & ONST LABR, UNSP WEEKS OF GEST Status: Acute Current Visit: Yes Qualifiers: PROM onset of labor timing: onset of labor within 24 hours of rupture PROM gestational age: full term Qualified Code(s): O42.02 - Full-term premature rupture of membranes, onset of labor within 24 hours of rupture (3) History of delivery SNOMED Code(s): 498655224 Code(s): Z98.891 - HISTORY OF UTERINE SCAR FROM PREVIOUS SURGERY Status: Acute Current Visit: Yes (4) Vaginal after , delivered, current hospitalization SNOMED Code(s): 897333097 Code(s): O34.219 - MATERNAL CARE FOR UNSP TYPE SCAR FROM PREVIOUS DEL Status: Acute Current Visit: Yes (5) hemorrhage SNOMED Code(s): 19693371 Code(s): O72.1 - OTHER IMMEDIATE HEMORRHAGE Status: Acute Current Visit: Yes Qualifiers: hemorrhage type: other immediate Qualified Code(s): O72.1 - Other immediate hemorrhage - Problem List Review Problem List Initiated/Reviewed/Updated: Yes - My Orders Last 24 Hours: My Active Orders 11/15/19 06:24 Activity as Tolerated [RC] PER UNIT ROUTINE Vital Signs [RC] 03,,, Acetaminophen [Tylenol] 650 mg PO Q4H PRN Benzocaine/Menthol [Dermoplast Pain Relief Lookout] See Dose Instructions TOP ASDIRECTED PRN Docusate Sodium [Colace] 100 mg PO BID PRN Ibuprofen [Motrin] 600 mg PO Q6H PRN witch Odalys [Tucks] 1 pad TOP ASDIRECTED PRN Assess Lochia [WOMSER] Per Unit Routine Assess Uterine Involution [WOMSER] Per Unit Routine Breast Pump [WOMSER] Per Unit Routine Heat Therapy [OM.PC] PRN Ice Therapy [OM.PC] Per Unit Routine Perineal Care [OM.PC] Per Unit Routine Peripheral IV Discontinue [OM.PC] Routine Sitz Bath [OM.PC] Per Unit Routine 11/15/19 Breakfast Regular Diet [DIET] 11/16/19 06:24 Heat Therapy [OM.PC] PRN - Assessment Assessment:: PPD#1 - Plan Plan:: Routine cares Breast feeding with some difficulty. Will continue to work on Discharge home tomorrow
[2019-11-16] MEDS: Ibuprofen 600 MG Tab PO PRN ×3 (09:00→23:15)
--- NOTE | 2019-11-16 11:01 | PCM48HPAN ---
Post Anesthesia Note - EVALUATION WITHIN 48HRS OF ANESTHETIC Vital Signs in Normal Range: Yes Patient Participated in Evaluation: Yes Respiratory Function Stable: Yes Airway Patent: Yes Cardiovascular Function Stable: Yes Hydration Status Stable: Yes Pain Control Satisfactory: Yes Nausea and Vomiting Control Satisfactory: Yes Mental Status Recovered: Yes Vital Signs: Last Vital Signs Temp 36.7 C 11/15/19 21:09 Pulse 80 11/16/19 04:17 Resp 16 11/16/19 04:17 BP 92/53 L 11/16/19 04:17 Pulse Ox 96 11/16/19 04:17 - COMMENTS/OBSERVATIONS Free Text/Narrative:: Mary has mild soreness at her epidural insertion site. She has been up walking around without difficulty. Denies headache or numbness/weakness to her legs.
[2019-11-16] MEDS: Witch Hazel Medicated Pads 40/Jar TOP PRN (16:24)
--- NOTE | 2019-11-17 07:12 | PCM.DCSUM1 ---
Discharge Summary - Hospital Course Free Text/Narrative:: [facility] LIVE L/D Delivery Note Patient Name: DILMA MORTON Date of : 89 Patient Status: Inpatient Attending Provider: Sara Farris Date: 11/15/19 05:35 Initialization Date: 11/15/19 05:35 L & D Note - General Info Date of Service: 11/15/19 - Delivery Note Labor: Augmented by Oxytocin Delivery Outcome: Livebirth Delivery Method: Spontaneous Vaginal Delivery-Single Infant Delivery Mode: Spontaneous Presentation: Right Occiput Anterior (DENNY) Nuchal Cord: None Anesthesia Type: Epidural Amniotic Fluid Description: Clear Episiotomy Type: None Laceration: Sulcus Suture type: Vicryl Suture size: 2-0 Placenta: Intact, Spontaneous Cord: 3 Vessels Estimated Blood Loss: 500 Resuscitation Needed: Yes [place]: Bulb Syringe, Stimulated, Warmed, [place] Used, Warmer Used Delivery Comments (Free Text/Narrative):: Patient found to be complete and began pushing. With maternal pushing effort head delivered from an DENNY presentation. With gentle downward traction the shoulders and body delivered. placed on maternal abdomen. Cord clamped and cut. There is immediately relatively brisk bleeding noted. Placenta delivered. Patient given 600 mcg of buccal Cytotec. Inspection showed bleeding also from 2 bilateral sulcus tears. These were repaired with interrupted sutures of 2-0 Vicryl. Still somewhat oozing from these sites. Patient given tranexamic acid. Still with slightly poor tone and so dose of Methergine given and bladder emptied via straight catheterization. With the aforementioned interventions bleeding did cathy and patient did feel improved. - General Info Date of Service: 11/15/19 - Patient Data Vitals - Most Recent: Last Vital Signs Temp 36.4 C 11/14/19 10:03 Pulse 99 11/14/19 10:03 Resp 16 11/14/19 10:03 BP 116/71 11/14/19 10:03 Pulse Ox 100 11/14/19 10:03 Weight - Most Recent: 82.781 kg I&O - Last 24 Hours: Intake & Output 11/14/19 11/14/19 11/15/19 14:59 22:59 06:59 Intake Total 120 Output Total 1300 Balance 120 -1300 Lab Results Last 24 Hours: Laboratory Results - last 24 hr 11/14/19 11/14/19 11/14/19 Range/Units 10:05 11:15 11:15 WBC 6.92 (3.98-10.04) K/mm3 RBC 3.91 L (3.98-5.22) M/mm3 Hgb 11.6 (11.2-15.7) gm/dl Hct 34.9 (34.1-44.9) % MCV 89.3 (79.4-94.8) fl MCH 29.7 (25.6-32.2) pg MCHC 33.2 (32.2-35.5) g/dl RDW Std Deviation 48.1 H (36.4-46.3) fL Plt Count 212 (182-369) K/mm3 MPV 10.3 (9.4-12.3) fl Neut % (Auto) 59.5 (34.0-71.1) % Lymph % (Auto) 26.7 (19.3-51.7) % [place] % (Auto) 11.1 (4.7-12.5) % Eos % (Auto) 1.7 (0.7-5.8) Baso % (Auto) 0.4 (0.1-1.2) % Neut # (Auto) 4.11 (1.56-6.13) K/mm3 Lymph # (Auto) 1.85 (1.18-3.74) K/mm3 [place] # (Auto) 0.77 H (0.24-0.36) K/mm3 Eos # (Auto) 0.12 (0.04-0.36) K/mm3 Baso # (Auto) 0.03 (0.01-0.08) K/mm3 Membrane Rupture Positive H RPR Non-reactive (NONREACTIVE) Blood Type Gel Antibody Screen 11/14/19 Range/Units 11:15 WBC (3.98-10.04) K/mm3 RBC (3.98-5.22) M/mm3 Hgb (11.2-15.7) gm/dl Hct (34.1-44.9) % MCV (79.4-94.8) fl MCH (25.6-32.2) pg MCHC (32.2-35.5) g/dl RDW Std Deviation (36.4-46.3) fL Plt Count (182-369) K/mm3 MPV (9.4-12.3) fl Neut % (Auto) (34.0-71.1) % Lymph % (Auto) (19.3-51.7) % [place] % (Auto) (4.7-12.5) % Eos % (Auto) (0.7-5.8) Baso % (Auto) (0.1-1.2) % Neut # (Auto) (1.56-6.13) K/mm3 Lymph # (Auto) (1.18-3.74) K/mm3 [place] # (Auto) (0.24-0.36) K/mm3 Eos # (Auto) (0.04-0.36) K/mm3 Baso # (Auto) (0.01-0.08) K/mm3 Membrane Rupture RPR (NONREACTIVE) Blood Type O POSITIVE Gel Antibody Screen Negative Med Orders - Current: Current Medications Ephedrine Sulfate (Ephedrine Sulfate) 5 mg IVPUSH ASDIRECTED PRN PRN Reason: Hypotension Fentanyl (Sublimaze) 100 mcg EPIDUR Q3H PRN PRN Reason: Pain Last Admin: 11/14/19 15:07 Dose: 100 mcg Fentanyl/Bupivacaine HCl (Fentanyl/Bupivacaine/Ns 2 Mcg-0.125% 100 Ml) 100 ml EPIDUR ASDIRECTED INNA Last Admin: 11/15/19 00:46 Dose: 100 ml Lactated Ringer's (Ringers, Lactated) 1,000 mls @ 100 mls/hr IV ASDIRECTED INNA Last Admin: 11/15/19 02:06 Dose: 125 mls/hr Oxytocin/Lactated Ringer's (Pitocin In Lr 10 Units/1,000 Ml) 10 unit in 1,000 mls @ 12 mls/hr IV TITRATE INNA; Protocol Last Titration: 11/14/19 21:44 Dose: 6 munits/min, 36 mls/hr Oxytocin/Lactated Ringer's (Pitocin In Lr 10 Units/1,000 Ml) 10 unit in 1,000 mls @ 500 mls/hr IV .CONTINUOUS INNA Phenylephrine HCl 1 mg/ Sodium (Chloride) 10.1 mls @ 1 mls/sec IV TITRATE PRN; Protocol PRN Reason: see comment Methylergonovine Maleate (Methergine) 0.2 mg IM NOW STA Stop: 11/15/19 05:35 Misoprostol (Cytotec) 600 mcg PO NOW STA Stop: 11/15/19 05:35 Nalbuphine HCl (Nubain) 10 mg IVPUSH Q2H PRN PRN Reason: Pain Ondansetron HCl (Zofran) 4 mg IVPUSH ONETIME PRN PRN Reason: Nausea/Vomiting Sodium Chloride (Saline Flush) 10 ml FLUSH ASDIRECTED PRN PRN Reason: Keep Vein Open Tranexamic Acid (Cyklokapron) 1,000 mg IVPUSH ONETIME ONE Stop: 11/15/19 05:35 Discontinued Medications Methylergonovine Maleate (Methergine) Confirm Administered Dose 0.2 mg .ROUTE .STK-MED ONE Stop: 11/15/19 05:25 Misoprostol (Cytotec) Confirm Administered Dose 200 mcg .ROUTE .STK-MED ONE Stop: 11/15/19 05:00 Tranexamic Acid (Cyklokapron) Confirm Administered Dose 1,000 mg .ROUTE .STK- MED ONE Stop: 11/15/19 05:12 - Problem List & Annotations (1) 39 weeks gestation of SNOMED Code(s): 01510954 Code(s): Z3A.39 - 39 WEEKS GESTATION OF Status: Acute Current Visit: Yes (2) PROM (premature rupture of membranes) SNOMED Code(s): 83962743 Code(s): O42.90 - JENA ROM, 7TH0 BETW RUPT & ONST LABR, UNSP WEEKS OF GEST Status: Acute Current Visit: Yes Qualifiers: PROM onset of labor timing: onset of labor within 24 hours of rupture PROM gestational age: full term Qualified Code(s): O42.02 - Full-term premature rupture of membranes, onset of labor within 24 hours of rupture (3) History of delivery SNOMED Code(s): 175903980 Code(s): Z98.891 - HISTORY OF UTERINE SCAR FROM PREVIOUS SURGERY Status: Acute Current Visit: Yes (4) Vaginal after , delivered, current hospitalization SNOMED Code(s): 076178775 Code(s): O34.219 - MATERNAL CARE FOR UNSP TYPE SCAR FROM PREVIOUS DEL Status: Acute Current Visit: Yes (5) hemorrhage SNOMED Code(s): 15184150 Code(s): O72.1 - OTHER IMMEDIATE HEMORRHAGE Status: Acute Current Visit: Yes - Problem List Review Problem List Initiated/Reviewed/Updated: Yes - My Orders Last 24 Hours: My Active Orders 11/15/19 05:34 Methylergonovine [Methergine] 0.2 mg IM NOW STA Tranexamic Acid [Cyklokapron] 1,000 mg IVPUSH ONETIME ONE miSOPROStoL [Cytotec] 600 mcg PO NOW STA - Assessment Assessment:: PPD#0 - Plan Plan:: Routine cares Monitor bleeding closely Breast feeding Discharge home in 1-2 days HPI Initial Comments: [facility] LIVE L/D Delivery Note Patient Name: DILMA MORTON Date of : 89 Patient Status: Inpatient Attending Provider: Sara Farris Date: 11/15/19 05:35 Initialization Date: 11/15/19 05:35 L & D Note - General Info Date of Service: 11/15/19 - Delivery Note Labor: Augmented by Oxytocin Delivery Outcome: Livebirth Delivery Method: Spontaneous Vaginal Delivery-Single Delivery Mode: Spontaneous Presentation: Right Occiput Anterior (DENNY) Nuchal Cord: None Anesthesia Type: Epidural Amniotic Fluid Description: Clear Episiotomy Type: None Laceration: Sulcus Suture type: Vicryl Suture size: 2-0 Placenta: Intact, Spontaneous Cord: 3 Vessels Estimated Blood Loss: 500 Resuscitation Needed: Yes : Bulb Syringe, Stimulated, Warmed, [place] Used, Warmer Used Delivery Comments (Free Text/Narrative):: Patient found to be complete and began pushing. With maternal pushing effort head delivered from an DENNY presentation. With gentle downward traction the shoulders and body delivered. placed on maternal abdomen. Cord clamped and cut. There is immediately relatively brisk bleeding noted. Placenta delivered. Patient given 600 mcg of buccal Cytotec. Inspection showed bleeding also from 2 bilateral sulcus tears. These were repaired with interrupted sutures of 2-0 Vicryl. Still somewhat oozing from these sites. Patient given tranexamic acid. Still with slightly poor tone and so dose of Methergine given and bladder emptied via straight catheterization. With the aforementioned interventions bleeding did cathy and patient did feel improved. - General Info Date of Service: 11/15/19 - Patient Data Vitals - Most Recent: Last Vital Signs Temp 36.4 C 11/14/19 10:03 Pulse 99 11/14/19 10:03 Resp 16 11/14/19 10:03 BP 116/71 11/14/19 10:03 Pulse Ox 100 11/14/19 10:03 Weight - Most Recent: 82.781 kg I&O - Last 24 Hours: Intake & Output 11/14/19 11/14/19 11/15/19 14:59 22:59 06:59 Intake Total 120 Output Total 1300 Balance 120 -1300 Lab Results Last 24 Hours: Laboratory Results - last 24 hr 11/14/19 11/14/19 11/14/19 Range/Units 10:05 11:15 11:15 WBC 6.92 (3.98-10.04) K/mm3 RBC 3.91 L (3.98-5.22) M/mm3 Hgb 11.6 (11.2-15.7) gm/dl Hct 34.9 (34.1-44.9) % MCV 89.3 (79.4-94.8) fl MCH 29.7 (25.6-32.2) pg MCHC 33.2 (32.2-35.5) g/dl RDW Std Deviation 48.1 H (36.4-46.3) fL Plt Count 212 (182-369) K/mm3 MPV 10.3 (9.4-12.3) fl Neut % (Auto) 59.5 (34.0-71.1) % Lymph % (Auto) 26.7 (19.3-51.7) % [place] % (Auto) 11.1 (4.7-12.5) % Eos % (Auto) 1.7 (0.7-5.8) Baso % (Auto) 0.4 (0.1-1.2) % Neut # (Auto) 4.11 (1.56-6.13) K/mm3 Lymph # (Auto) 1.85 (1.18-3.74) K/mm3 [place] # (Auto) 0.77 H (0.24-0.36) K/mm3 Eos # (Auto) 0.12 (0.04-0.36) K/mm3 Baso # (Auto) 0.03 (0.01-0.08) K/mm3 Membrane Rupture Positive H RPR Non-reactive (NONREACTIVE) Blood Type Gel Antibody Screen 11/14/19 Range/Units 11:15 WBC (3.98-10.04) K/mm3 RBC (3.98-5.22) M/mm3 Hgb (11.2-15.7) gm/dl Hct (34.1-44.9) % MCV (79.4-94.8) fl MCH (25.6-32.2) pg MCHC (32.2-35.5) g/dl RDW Std Deviation (36.4-46.3) fL Plt Count (182-369) K/mm3 MPV (9.4-12.3) fl Neut % (Auto) (34.0-71.1) % Lymph % (Auto) (19.3-51.7) % [place] % (Auto) (4.7-12.5) % Eos % (Auto) (0.7-5.8) Baso % (Auto) (0.1-1.2) % Neut # (Auto) (1.56-6.13) K/mm3 Lymph # (Auto) (1.18-3.74) K/mm3 [place] # (Auto) (0.24-0.36) K/mm3 Eos # (Auto) (0.04-0.36) K/mm3 Baso # (Auto) (0.01-0.08) K/mm3 Membrane Rupture RPR (NONREACTIVE) Blood Type O POSITIVE Gel Antibody Screen Negative Med Orders - Current: Current Medications Ephedrine Sulfate (Ephedrine Sulfate) 5 mg IVPUSH ASDIRECTED PRN PRN Reason: Hypotension Fentanyl (Sublimaze) 100 mcg EPIDUR Q3H PRN PRN Reason: Pain Last Admin: 11/14/19 15:07 Dose: 100 mcg Fentanyl/Bupivacaine HCl (Fentanyl/Bupivacaine/Ns 2 Mcg-0.125% 100 Ml) 100 ml EPIDUR ASDIRECTED INNA Last Admin: 11/15/19 00:46 Dose: 100 ml Lactated Ringer's (Ringers, Lactated) 1,000 mls @ 100 mls/hr IV ASDIRECTED INNA Last Admin: 11/15/19 02:06 Dose: 125 mls/hr Oxytocin/Lactated Ringer's (Pitocin In Lr 10 Units/1,000 Ml) 10 unit in 1,000 mls @ 12 mls/hr IV TITRATE INNA; Protocol Last Titration: 11/14/19 21:44 Dose: 6 munits/min, 36 mls/hr Oxytocin/Lactated Ringer's (Pitocin In Lr 10 Units/1,000 Ml) 10 unit in 1,000 mls @ 500 mls/hr IV .CONTINUOUS INNA Phenylephrine HCl 1 mg/ Sodium (Chloride) 10.1 mls @ 1 mls/sec IV TITRATE PRN; Protocol PRN Reason: see comment Methylergonovine Maleate (Methergine) 0.2 mg IM NOW STA Stop: 11/15/19 05:35 Misoprostol (Cytotec) 600 mcg PO NOW STA Stop: 11/15/19 05:35 Nalbuphine HCl (Nubain) 10 mg IVPUSH Q2H PRN PRN Reason: Pain Ondansetron HCl (Zofran) 4 mg IVPUSH ONETIME PRN PRN Reason: Nausea/Vomiting Sodium Chloride (Saline Flush) 10 ml FLUSH ASDIRECTED PRN PRN Reason: Keep Vein Open Tranexamic Acid (Cyklokapron) 1,000 mg IVPUSH ONETIME ONE Stop: 11/15/19 05:35 Discontinued Medications Methylergonovine Maleate (Methergine) Confirm Administered Dose 0.2 mg .ROUTE .STK-MED ONE Stop: 11/15/19 05:25 Misoprostol (Cytotec) Confirm Administered Dose 200 mcg .ROUTE .STK-MED ONE Stop: 11/15/19 05:00 Tranexamic Acid (Cyklokapron) Confirm Administered Dose 1,000 mg .ROUTE .STK- MED ONE Stop: 11/15/19 05:12 - Problem List & Annotations (1) 39 weeks gestation of SNOMED Code(s): 73546412 Code(s): Z3A.39 - 39 WEEKS GESTATION OF Status: Acute Current Visit: Yes (2) PROM (premature rupture of membranes) SNOMED Code(s): 02377682 Code(s): O42.90 - JENA ROM, 7TH0 BETW RUPT & ONST LABR, UNSP WEEKS OF GEST Status: Acute Current Visit: Yes Qualifiers: PROM onset of labor timing: onset of labor within 24 hours of rupture PROM gestational age: full term Qualified Code(s): O42.02 - Full-term premature rupture of membranes, onset of labor within 24 hours of rupture (3) History of delivery SNOMED Code(s): 179085549 Code(s): Z98.891 - HISTORY OF UTERINE SCAR FROM PREVIOUS SURGERY Status: Acute Current Visit: Yes (4) Vaginal after , delivered, current hospitalization SNOMED Code(s): 274677351 Code(s): O34.219 - MATERNAL CARE FOR UNSP TYPE SCAR FROM PREVIOUS DEL Status: Acute Current Visit: Yes (5) hemorrhage SNOMED Code(s): 67824478 Code(s): O72.1 - OTHER IMMEDIATE HEMORRHAGE Status: Acute Current Visit: Yes - Problem List Review Problem List Initiated/Reviewed/Updated: Yes - My Orders Last 24 Hours: My Active Orders 11/15/19 05:34 Methylergonovine [Methergine] 0.2 mg IM NOW STA Tranexamic Acid [Cyklokapron] 1,000 mg IVPUSH ONETIME ONE miSOPROStoL [Cytotec] 600 mcg PO NOW STA - Assessment Assessment:: PPD#0 - Plan Plan:: Routine cares Monitor bleeding closely Breast feeding Discharge home in 1-2 days Brief History: [facility] LIVE . L/D Delivery Note. [facility] Number: [id number]. Date of : Patient Status: Inpatient. Attending Provider: Saar FarrisAccount Number: [id number]. Date: 11/15/19 05:35Initialization Date: 11/15/19 05:35. L & D Note. - General Info. Date of Service: 11/15/19. - Delivery Note. Labor: Augmented by Oxytocin. Delivery Outcome: Livebirth. Infant Delivery Method: Spontaneous Vaginal Delivery-Single. Delivery Mode: Spontaneous. Presentation: Right Occiput Anterior (DENNY). Nuchal Cord: None. Anesthesia Type: Epidural. Amniotic Fluid Description: Clear. Episiotomy Type: None. Laceration: Sulcus. Suture type: Vicryl. Suture size: 2-0. Placenta: Intact, Spontaneous. Cord: 3 Vessels. Estimated Blood Loss: 500. Resuscitation Needed: Yes. : Bulb Syringe, Stimulated, Warmed, [place] Used, Warmer Used. Delivery Comments (Free Text/Narrative):: Patient found to be complete and began pushing. With maternal pushing effort head delivered from an DENNY presentation. With gentle downward traction the shoulders and body delivered. Infant placed on maternal abdomen. Cord clamped and cut. There is immediately relatively brisk bleeding noted. Placenta delivered. Patient given 600 mcg of buccal Cytotec. Inspection showed bleeding also from 2 bilateral sulcus tears. These were repaired with interrupted sutures of 2-0 Vicryl. Still somewhat oozing from these sites. Patient given tranexamic acid. Still with slightly poor tone and so dose of Methergine given and bladder emptied via straight catheterization. With the aforementioned interventions bleeding did cathy and patient did feel improved. - General Info. Date of Service: 11/15/19. - Patient Data. Vitals - Most Recent: Last Vital Signs. Temp 36.4 C 11/14/19 10:03. Pulse 99 11/14/19 10: 03. Resp 16 11/14/19 10:03. BP 116/71 11/14/19 10:03. Pulse Ox 100 10:03. Weight - Most Recent: 82.781 kg. I&O - Last 24 Hours: Intake & Output. 11/13/2004/. 14:5922:5906:59. Intake [id number]. Output [id number]. [id number]. Lab Results Last 24 Hours: Laboratory Results - last 24 hr. 11/13/2004/Range/Units. 10:0511:1511:15. WBC 6.92 ( 3.98-10.04) K/mm3. RBC 3.91 L (3.98-5.22) M/mm3. Hgb 11.6 (11.2-15.7) gm/ dl. Hct 34.9 (34.1-44.9) %. MCV 89.3 (79.4-94.8) fl. MCH 29.7 (25.6-32.2) pg. MCHC 33.2 (32.2-35.5) g/dl. RDW Std Deviation 48.1 H (36.4-46.3) fL. Plt Count 212 (182-369) K/mm3. MPV 10.3 (9.4-12.3) fl. Neut % (Auto) 59.5 ( 34.0-71.1) %. Lymph % (Auto) 26.7 (19.3-51.7) %. [place] % (Auto) 11.1 (4.7- 12.5) %. Eos % (Auto) 1.7 (0.7-5.8). Baso % (Auto) 0.4 (0.1-1.2) %. Neut # (Auto) 4.11 (1.56-6.13) K/mm3. Lymph # (Auto) 1.85 (1.18-3.74) K/mm3. [place] # (Auto) 0.77 H (0.24-0.36) K/mm3. Eos # (Auto) 0.12 (0.04-0.36) K/mm3. Baso # (Auto) 0.03 (0.01-0.08) K/mm3. Membrane Rupture Positive H. RPR Non-reactive (NONREACTIVE). Blood Type. Gel Antibody Screen. 11/14/19Range/ Units. 11:15. WBC (3.98-10.04) K/mm3. RBC (3.98-5.22) M/mm3. Hgb (11.2- 15.7) gm/dl. Hct (34.1-44.9) %. MCV (79.4-94.8) fl. MCH (25.6-32.2) pg. MCHC (32.2-35.5) g/dl. RDW Std Deviation (36.4-46.3) fL. Plt Count (182-369 ) K/mm3. MPV (9.4-12.3) fl. Neut % (Auto) (34.0-71.1) %. Lymph % (Auto) ( 19.3-51.7) %. [place] % (Auto) (4.7-12.5) %. Eos % (Auto) (0.7-5.8). Baso % ( Auto) (0.1-1.2) %. Neut # (Auto) (1.56-6.13) K/mm3. Lymph # (Auto) (1.18- 3.74) K/mm3. [place] # (Auto) (0.24-0.36) K/mm3. Eos # (Auto) (0.04-0.36) K/ mm3. Baso # (Auto) (0.01-0.08) K/mm3. Membrane Rupture. RPR ( NONREACTIVE). Blood Type O POSITIVE. Gel Antibody Screen Negative. Med Orders - Current: Current Medications. Ephedrine Sulfate (Ephedrine Sulfate) 5 mg IVPUSH ASDIRECTED PRN. PRN Reason: Hypotension. Fentanyl (Sublimaze) 100 mcg EPIDUR Q3H PRN. PRN Reason: Pain. Last Admin: 11/14/19 15:07 Dose: 100 mcg. Fentanyl/Bupivacaine HCl (Fentanyl/Bupivacaine/Ns 2 Mcg-0.125% 100 Ml ) 100 ml EPIDUR ASDIRECTED INNA. Last Admin: 11/15/19 00:46 Dose: 100 ml. Lactated Ringer's (Ringers, Lactated) 1,000 mls @ 100 mls/hr IV ASDIRECTED INNA. Last Admin: 11/15/19 02:06 Dose: 125 mls/hr. Oxytocin/Lactated Ringer's (Pitocin In Lr 10 Units/1,000 Ml) 10 unit in 1,000 mls @ 12 mls/hr IV TITRATE INNA; Protocol. Last Titration: 11/14/19 21:44 Dose: 6 munits/min, 36 mls/hr. Oxytocin/Lactated Ringer's (Pitocin In Lr 10 Units/1,000 Ml) 10 unit in 1,000 mls @ 500 mls/hr IV .CONTINUOUS INNA. Phenylephrine HCl 1 mg/ Sodium (Chloride) 10.1 mls @ 1 mls/sec IV TITRATE PRN; Protocol. PRN Reason: see comment. Methylergonovine Maleate (Methergine) 0.2 mg IM NOW STA. Stop: 11/15/19 05: 35. Misoprostol (Cytotec) 600 mcg PO NOW STA. Stop: 11/15/19 05:35. Nalbuphine HCl (Nubain) 10 mg IVPUSH Q2H PRN. PRN Reason: Pain. Ondansetron HCl (Zofran) 4 mg IVPUSH ONETIME PRN. PRN Reason: Nausea/Vomiting. Sodium Chloride (Saline Flush) 10 ml FLUSH ASDIRECTED PRN. PRN Reason: Keep Vein Open. Tranexamic Acid (Cyklokapron) 1,000 mg IVPUSH ONETIME ONE. Stop: 05:35. Discontinued Medications. Methylergonovine Maleate (Methergine) Confirm Administered Dose 0.2 mg .ROUTE .STK-MED ONE. Stop: 11/15/19 05:25. Misoprostol (Cytotec) Confirm Administered Dose 200 mcg .ROUTE .STK-MED ONE. Stop: 11/15/19 05:00. Tranexamic Acid (Cyklokapron) Confirm Administered Dose 1 ,000 mg .ROUTE .STK-MED ONE. Stop: 11/15/19 05:12. - Problem List & Annotations. (1) 39 weeks gestation of . SNOMED Code(s): 32434680. Code(s): Z3A.39 - 39 WEEKS GESTATION OF Status: Acute Current Visit: Yes. (2) PROM (premature rupture of membranes). SNOMED Code(s): 92048641. Code(s): O42.90 - JENA ROM, 7TH0 BETW RUPT & ONST LABR, UNSP WEEKS OF GEST Status: Acute Current Visit: Yes. Qualifiers: PROM onset of labor timing: onset of labor within 24 hours of rupture PROM gestational age: full term Qualified Code(s): O42.02 - Full-term premature rupture of membranes, onset of labor within 24 hours of rupture. (3) History of delivery. SNOMED Code(s): 465574188. Code(s): Z98.891 - HISTORY OF UTERINE SCAR FROM PREVIOUS SURGERY Status: Acute Current Visit: Yes. (4) Vaginal after , delivered, current hospitalization. SNOMED Code(s): 135158804. Code( s): O34.219 - MATERNAL CARE FOR UNSP TYPE SCAR FROM PREVIOUS DEL Status: Acute Current Visit: Yes. (5) hemorrhage. SNOMED Code(s) : 39338677. Code(s): O72.1 - OTHER IMMEDIATE HEMORRHAGE Status: Acute Current Visit: Yes. - Problem List Review. Problem List Initiated/ Reviewed/Updated: Yes. - My Orders. Last 24 Hours: My Active Orders. 05:34. Methylergonovine [Methergine] 0.2 mg IM NOW STA. Tranexamic Acid [ Cyklokapron] 1,000 mg IVPUSH ONETIME ONE. miSOPROStoL [Cytotec] 600 mcg PO NOW STA. - Assessment. Assessment:: PPD#0. - Plan. Plan:: Routine cares. Monitor bleeding closely. Breast feeding. Discharge home in 1-2 days Diagnosis: Stroke: No - Discharge Data Discharge Date: 11/17/19 Discharge Disposition: Home, Self-Care 01 Condition: Good - Referral to Home Health Primary Care Physician: Daiana Sheppard NP - Discharge Diagnosis/Problem(s) (1) 39 weeks gestation of SNOMED Code(s): 43707544 ICD Code: Z3A.39 - 39 WEEKS GESTATION OF Status: Acute Current Visit: Yes (2) History of delivery SNOMED Code(s): 442647058 ICD Code: Z98.891 - HISTORY OF UTERINE SCAR FROM PREVIOUS SURGERY Status: Acute Current Visit: Yes (3) PROM (premature rupture of membranes) SNOMED Code(s): 22809419 ICD Code: O42.90 - JENA ROM, 7TH0 BETW RUPT & ONST LABR, UNSP WEEKS OF GEST Status: Acute Current Visit: Yes Qualifiers: PROM onset of labor timing: onset of labor within 24 hours of rupture PROM gestational age: full term Qualified Code(s): O42.02 - Full-term premature rupture of membranes, onset of labor within 24 hours of rupture (4) hemorrhage SNOMED Code(s): 44911451 ICD Code: O72.1 - OTHER IMMEDIATE HEMORRHAGE Status: Acute Current Visit: Yes Qualifiers: hemorrhage type: other immediate Qualified Code(s): O72.1 - Other immediate hemorrhage (5) Vaginal after , delivered, current hospitalization SNOMED Code(s): 506755791 ICD Code: O34.219 - MATERNAL CARE FOR UNSP TYPE SCAR FROM PREVIOUS DEL Status: Acute Current Visit: Yes - Patient Summary/Data Complications: none Consults: none Hospital Course: uneventful - Patient Instructions Driving: Do Not Drive (x48 hrs) Showering/Bathing: May Shower Notify Provider of: Fever, Increased Pain, Swelling and Redness, Drainage, Nausea and/or Vomiting - Discharge Plan *PRESCRIPTION DRUG MONITORING PROGRAM REVIEWED*: Not Applicable *COPY OF PRESCRIPTION DRUG MONITORING REPORT IN PATIENT ADI: Not Applicable Home Medications: Home Meds Acetaminophen [Tylenol] 650 mg PO Q6H PRN tablet 11/17/19 [Rx] Benzocaine/Menthol [Dermoplast Pain Relief [place]] 1 spray TOP ASDIRECTED PRN canister 11/17/19 [Rx] Docusate Sodium [Colace] 100 mg PO BID PRN cap 11/17/19 [Rx] Ibuprofen [Motrin] 600 mg PO Q6H PRN tablet 11/17/19 [Rx] witch Sanjuana [Tucks] 1 pad TOP ASDIRECTED PRN pad 11/17/19 [Rx] - Discharge Summary/Plan Comment DC Time >30 min.: No - Patient Data Vitals - Most Recent: Last Vital Signs Temp 97.7 F 11/17/19 03:01 Pulse 85 11/17/19 02:59 Resp 18 11/17/19 02:59 BP 104/57 L 11/17/19 02:59 Pulse Ox 98 11/17/19 02:59 Weight - Most Recent: 182 lb 8 oz Med Orders - Current: Current Medications Acetaminophen (Tylenol) 650 mg PO Q4H PRN PRN Reason: mild pain or fever Benzocaine/Menthol (Dermoplast Pain Relief [place]) 0 gm TOP ASDIRECTED PRN PRN Reason: Perineal Comfort Measure Last Admin: 11/15/19 09:38 Dose: 1 spray Docusate Sodium (Colace) 100 mg PO BID PRN PRN Reason: Constipation Last Admin: 11/16/19 09:01 Dose: 100 mg Ibuprofen (Motrin) 600 mg PO Q6H PRN PRN Reason: Mild pain or fever Last Admin: 11/16/19 23:15 Dose: 600 mg Witch Sanjuana (Tucks) 1 pad TOP ASDIRECTED PRN PRN Reason: Perineal Comfort Measure Last Admin: 11/16/19 16:24 Dose: 1 pad Discontinued Medications Bupivacaine HCl (Sensorcaine-Mpf 0.25%) 10 ml .ROUTE .STK-MED ONE Stop: 11/15/19 00:01 Ephedrine Sulfate (Ephedrine Sulfate) 5 mg IVPUSH ASDIRECTED PRN PRN Reason: Hypotension Fentanyl (Sublimaze) 100 mcg EPIDUR Q3H PRN PRN Reason: Pain Last Admin: 11/14/19 15:07 Dose: 100 mcg Fentanyl/Bupivacaine HCl (Fentanyl/Bupivacaine/Ns 2 Mcg-0.125% 100 Ml) 100 ml EPIDUR ASDIRECTED INNA Last Admin: 11/15/19 00:46 Dose: 100 ml Lactated Ringer's (Ringers, Lactated) 1,000 mls @ 100 mls/hr IV ASDIRECTED INNA Last Admin: 11/15/19 05:41 Dose: 125 mls/hr Oxytocin/Lactated Ringer's (Pitocin In Lr 10 Units/1,000 Ml) 10 unit in 1,000 mls @ 12 mls/hr IV TITRATE INNA; Protocol Last Titration: 11/14/19 21:44 Dose: 6 munits/min, 36 mls/hr Oxytocin/Lactated Ringer's (Pitocin In Lr 10 Units/1,000 Ml) 10 unit in 1,000 mls @ 500 mls/hr IV .CONTINUOUS INNA Last Admin: 11/15/19 05:42 Dose: 500 mls/hr Phenylephrine HCl 1 mg/ Sodium (Chloride) 10.1 mls @ 1 mls/sec IV TITRATE PRN; Protocol PRN Reason: see comment Cefazolin Sodium/Dextrose 1 gm (/ Premix) 50 mls @ 100 mls/hr IV ONETIME ONE Stop: 11/15/19 07:04 Last Admin: 11/15/19 06:41 Dose: 100 mls/hr Cefazolin Sodium/Dextrose (Ancef) Confirm Administered Dose 50 mls @ as directed .ROUTE .STK-MED ONE Stop: 11/15/19 06:39 Last Admin: 11/15/19 07:11 Dose: Not Given Methylergonovine Maleate (Methergine) Confirm Administered Dose 0.2 mg .ROUTE .STK-MED ONE Stop: 11/15/19 05:25 Last Admin: 11/15/19 05:27 Dose: 0.2 mg Methylergonovine Maleate (Methergine) 0.2 mg IM NOW STA Stop: 11/15/19 05:35 Last Admin: 11/15/19 05:39 Dose: Not Given Misoprostol (Cytotec) Confirm Administered Dose 200 mcg .ROUTE .STK-MED ONE Stop: 11/15/19 05:00 Last Admin: 11/15/19 05:37 Dose: Not Given Misoprostol (Cytotec) 600 mcg PO NOW STA Stop: 11/15/19 05:35 Last Admin: 11/15/19 05:00 Dose: 600 mcg Nalbuphine HCl (Nubain) 10 mg IVPUSH Q2H PRN PRN Reason: Pain Ondansetron HCl (Zofran) 4 mg IVPUSH ONETIME PRN PRN Reason: Nausea/Vomiting Sodium Chloride (Saline Flush) 10 ml FLUSH ASDIRECTED PRN PRN Reason: Keep Vein Open Tranexamic Acid (Cyklokapron) Confirm Administered Dose 1,000 mg .ROUTE .[employer]- MED ONE Stop: 11/15/19 05:12 Last Admin: 11/15/19 05:16 Dose: 1,000 mg Tranexamic Acid (Cyklokapron) 1,000 mg IVPUSH ONETIME ONE Stop: 11/15/19 05:35 Last Admin: 11/15/19 05:39 Dose: Not Given
[2019-11-17] MEDS: Ibuprofen 600 MG Tab PO PRN (09:58)
[2019-11-17] MEDS: Benzocaine/Menthol 20%-0.5% Spray 56 GM Canister TOP PRN (13:13)
== END 2019-11-17 13:30 | disposition home or self-care (01) | DRG 806 ==
LOC: JD.OBCHECK 09:23 → JD.OB 09:34 → JD.OBCHECK 11:04 → JD.OB 11:04 → OBSVTOIN 11-15 04:54 → JD.OB 11-15 12:00
PROVIDERS: ADMIT Obstetrics & Gynecology; ATTEND Obstetrics & Gynecology
PROC: 10E0XZZ Delivery of Products of Conception, External Approach (ICD-10-PCS; principal; 2019-11-15)
PROC: 0KQM0ZZ Repair Perineum Muscle, Open Approach (ICD-10-PCS; 2019-11-15)
PROC: 3E0R3BZ Introduction of Anesthetic Agent into Spinal Canal, Percutaneous Approach (ICD-10-PCS; 2019-11-15)
PROC: 0UQGXZZ Repair Vagina, External Approach (ICD-10-PCS; 2019-11-15)
DX: O42.02 Full-term premature rupture of membranes, onset of labor within 24 hours of rupture (principal); O72.1 Other immediate postpartum hemorrhage; Z37.0 Single live birth; O71.4 Obstetric high vaginal laceration alone; Z3A.39 39 weeks gestation of pregnancy; O34.219 Maternal care for unspecified type scar from previous cesarean delivery
CPT/HCPCS: 36415; 51701; 51702; 59025; 59409; 84112; 85025; 86592; 86850; 86900; 86901; A9270-GY; J0690; J2210; J2590; J3010; J3490; J7120

== ENCOUNTER 2023-01-02 03:33 | Inpatient (IN) | payer MEDICAID ==
[~2023-01-02 03:33] MED LIST: Lidocaine 1% 10 ML MDV ONE; Lidocaine 1.5% with EPINEPHrine 1:200,000 5 ML Amp ONE
[2023-01-02] MEDS ORDERED: Ondansetron 4 MG/2 ML SDV IVPUSH PRN (04:20)
[2023-01-02] MEDS ORDERED: Nalbuphine 10 MG/0.5 ML Syringe IVPUSH PRN (04:20)
[2023-01-02] MEDS ORDERED: Sodium Chloride 0.9% 10 ML Syringe FLUSH PRN (04:20)
[2023-01-02] MEDS ORDERED: Oxytocin/Lactated Ringers 10 UNIT/1,000 ML BAG IV SCH ×2 (04:30→17:00)
[2023-01-02] MEDS: Lactated Ringers 1,000 ML IV SCH ×2 (04:40→17:07)
[2023-01-02 04:52] LABS: BASOPHILS ABSOLUTE AUTO 0.02 K/mm3 (0.01-0.08); BASOPHILS PERCENT AUTO 0.3 % (0.1-1.2); EOSINOPHILS ABSOLUTE AUTO 0.05 K/mm3 (0.04-0.36); EOSINOPHILS PERCENT AUTO 0.7 (0.7-5.8); HEMATOCRIT 34.2 % (34.1-44.9); HEMOGLOBIN 11.3 gm/dl (11.2-15.7); IMMATURE GRAN ABSOLUTE AUTO 0.04 K/mm3 (0.00-0.10); IMMATURE GRAN PERCENT AUTO 0.6 % (<=1.0); LYMPHOCYTES ABSOLUTE AUTO 1.82 K/mm3 (1.18-3.74); LYMPHOCYTES PERCENT AUTO 25.5 % (19.3-51.7); MEAN CORPUSCULAR HEMOGLOBIN 27.8 pg (25.6-32.2); MEAN PLATELET VOLUME 10.9 fl (9.4-12.3); MONOCYTES ABSOLUTE AUTO 0.63 K/mm3 (0.24-0.36); MONOCYTES PERCENT AUTO 8.8 % (4.7-12.5); NEUTROPHILS ABSOLUTE AUTO 4.58 K/mm3 (1.56-6.13); NEUTROPHILS PERCENT AUTO 64.1 % (34.0-71.1); PLATELET COUNT,PLT 185 K/mm3 (182-369); RED BLOOD CELL COUNT 4.07 M/mm3 (3.98-5.22); WHITE BLOOD CELL COUNT,WBC 7.14 K/mm3 (3.98-10.04)
[2023-01-02] MEDS ORDERED: fentaNYL 100 MCG/2 ML SDV EPIDUR PRN (05:04)
[2023-01-02] MEDS ORDERED: diphenhydrAMINE 50 MG/ML SDV IVPUSH PRN (05:04)
[2023-01-02] MEDS ORDERED: ePHEDrine 50 MG/ML SDV IVPUSH PRN (05:04)
[2023-01-02] MEDS: Bupivacaine/fentaNYL/NS 100 ML Bag EPIDUR PRN ×2 (05:57→15:03)
[2023-01-02] MEDS ORDERED: Cephalexin 500 MG Cap PO SCH (07:30)
[2023-01-02] MEDS ORDERED: Sodium Chloride 0.9% 10 ML Syringe FLUSH SCH (09:00)
[2023-01-02] MEDS ORDERED: Benzocaine/Menthol 20%-0.5% Spray 78 GM Cannister TOP PRN (19:52)
[2023-01-02] MEDS ORDERED: Ibuprofen 600 MG Tab PO PRN (19:52)
[2023-01-02] MEDS ORDERED: Witch Hazel Medicated Pads 40/Jar TOP PRN (19:52)
[2023-01-02] MEDS ORDERED: Acetaminophen 325 MG Tab PO PRN (19:52)
== END 2023-01-04 10:40 | disposition home or self-care (01) | DRG 807 ==
LOC: JD.OBCHECK 03:33 → JD.OB 04:21 → OBSVTOIN 19:02 → JD.OB 20:10
PROVIDERS: ADMIT Obstetrics & Gynecology; ATTEND Obstetrics & Gynecology
PROC: 10E0XZZ Delivery of Products of Conception, External Approach (ICD-10-PCS; principal; 2023-01-02)
PROC: 3E0R3BZ Introduction of Anesthetic Agent into Spinal Canal, Percutaneous Approach (ICD-10-PCS; 2023-01-02)
PROC: 00HU33Z Insertion of Infusion Device into Spinal Canal, Percutaneous Approach (ICD-10-PCS; 2023-01-02)
DX: O34.211 Maternal care for low transverse scar from previous cesarean delivery (principal); Z37.0 Single live birth; O24.424 Gestational diabetes mellitus in childbirth, insulin controlled; O99.52 Diseases of the respiratory system complicating childbirth; J45.909 Unspecified asthma, uncomplicated; O77.0 Labor and delivery complicated by meconium in amniotic fluid; O69.81X0 Labor and delivery complicated by cord around neck, without compression, not applicable or unspecified; Z88.2 Allergy status to sulfonamides; Z79.899 Other long term (current) drug therapy; Z90.721 Acquired absence of ovaries, unilateral; Z3A.39 39 weeks gestation of pregnancy; Z79.4 Long term (current) use of insulin
CPT/HCPCS: 36415; 51702; 59025; 59409; 82947; 85025; 86592; 86850; 86900; 86901; A9270-GY; J2590; J3010; J3490; J7120

== ENCOUNTER 2024-10-04 02:38 | Inpatient (IN) | payer BC, MEDICAID ==
[2024-10-04] MEDS ORDERED: Lidocaine 1% 50 ML MDV INJECT PRN (03:19)
[2024-10-04] MEDS ORDERED: Ondansetron 4 MG/2 ML SDV IVPUSH PRN (03:19)
[2024-10-04] MEDS ORDERED: Nalbuphine 10 MG/1 ML Vial IVPUSH PRN (03:19)
[2024-10-04] MEDS ORDERED: Sodium Chloride 0.9% 10 ML Syringe FLUSH PRN (03:19)
[2024-10-04] MEDS ORDERED: Oxytocin/0.9 % Sodium Chloride 30 UNIT/500 ML BAG IV SCH (03:30)
[2024-10-04 03:38] LABS: BASOPHILS PERCENT AUTO 0.6 % (0.0-1.0); EOSINOPHILS ABSOLUTE AUTO 0.1 K/mm3 (0.0-0.4); EOSINOPHILS PERCENT AUTO 1.6 % (0.0-6.0); HEMATOCRIT 36.9 % (37.0-47.0); HEMOGLOBIN 12.3 gm/dl (12.0-16.0); IMMATURE GRAN ABSOLUTE AUTO 0.03 K/mm3 (0.00-0.05); IMMATURE GRAN PERCENT AUTO 0.4 % (0.0-0.4); LYMPHOCYTES ABSOLUTE AUTO 2.2 K/mm3 (1.0-4.8); LYMPHOCYTES PERCENT AUTO 33.2 % (24.0-44.0); MEAN CORPUSCULAR HEMOGLOBIN 29.6 pg (28.0-32.0); MEAN CORPUSCULAR HGB CONC 33.3 g/dl (32.0-36.0); MEAN CORPUSCULAR VOLUME 88.7 fl (83.0-99.0); MEAN PLATELET VOLUME 10.3 fl (9.4-12.3); MONOCYTES ABSOLUTE AUTO 0.6 K/mm3 (0.0-0.8); MONOCYTES PERCENT AUTO 9.1 % (0.0-8.0); NEUTROPHILS ABSOLUTE AUTO 3.7 K/mm3 (1.8-7.7); NEUTROPHILS PERCENT AUTO 55.1 % (41.0-71.0); PLATELET COUNT,PLT 191 K/mm3 (150-400); RED BLOOD CELL COUNT 4.16 M/mm3 (4.10-5.30); WHITE BLOOD CELL COUNT,WBC 6.68 K/mm3 (3.9-11.3)
[2024-10-04] MEDS ORDERED: Bupivacaine 0.25% 10 ML SDV ONE (07:00)
[2024-10-04] MEDS ORDERED: Ropivacaine 0.2% PF 2 MG/ML 20 ML SDV ONE (07:00)
[2024-10-04] MEDS ORDERED: Glucagon,Human Recombinant 1 MG Vial IM PRN (07:18)
[2024-10-04] MEDS: Oxytocin/0.9 % Sodium Chloride 30 UNIT/500 ML BAG IV SCH (07:30)
[2024-10-04] MEDS: Lactated Ringers 1,000 ML IV SCH (07:31)
[2024-10-04] MEDS: Insulin Glargine,Human Rec. Analog 100 Units/ML 3 ML Pen SUBCUT SCH (08:56)
[2024-10-04] MEDS ORDERED: Sodium Chloride 0.9% 10 ML Syringe FLUSH SCH (09:00)
[2024-10-04] MEDS ORDERED: ePHEDrine 50 MG/ML SDV IM PRN (09:15)
[2024-10-04] MEDS ORDERED: diphenhydrAMINE 50 MG/ML SDV IVPUSH PRN (09:15)
[2024-10-04] MEDS ORDERED: ePHEDrine 50 MG/ML SDV IVPUSH PRN (09:15)
[2024-10-04] MEDS: Ropivacaine 200 MG in Premix Bag 1 BAG EPIDUR PRN (09:30)
[2024-10-04] MEDS ORDERED: Tranexamic Acid 1,000 MG/10 ML Vial ONE (11:59)
[2024-10-04] MEDS ORDERED: Acetaminophen 325 MG Tab PO PRN (16:24)
[2024-10-04] MEDS ORDERED: Docusate Sodium 100 MG Cap PO PRN (16:24)
[2024-10-04] MEDS: Ibuprofen 600 MG Tab PO SCH (17:41)
[2024-10-04] MEDS: Witch Hazel Medicated Pads 40/Jar TOP PRN (17:41)
[2024-10-04] MEDS: Benzocaine/Menthol 20%-0.5% Spray 78 GM Cannister TOP PRN (17:42)
[2024-10-05] MEDS: Ibuprofen 600 MG Tab PO SCH (06:57)
== END 2024-10-05 19:00 | disposition home or self-care (01) | DRG 560 ==
LOC: JD.OBCHECK 02:38 → JD.OB 02:48 → JD.OBCHECK 03:25 → OBSVTOIN 12:06 → JD.OB 12:07
PROVIDERS: ADMIT Obstetrics & Gynecology; ATTEND Obstetrics & Gynecology
PROC: 10E0XZZ Delivery of Products of Conception, External Approach (ICD-10-PCS; principal; 2024-10-04)
PROC: 3E0R3BZ Introduction of Anesthetic Agent into Spinal Canal, Percutaneous Approach (ICD-10-PCS; 2024-10-04)
PROC: 00HU33Z Insertion of Infusion Device into Spinal Canal, Percutaneous Approach (ICD-10-PCS; 2024-10-04)
DX: O42.02 Full-term premature rupture of membranes, onset of labor within 24 hours of rupture (principal); Z3A.37 37 weeks gestation of pregnancy; O24.424 Gestational diabetes mellitus in childbirth, insulin controlled; Z37.0 Single live birth
CPT/HCPCS: 36415; 51701; 59025; 59409; 85025; 86592; A9270-GY; J0665; J1815-GY; J2795; J7120; J7999